=== PATIENT | female | born 1980 | race American Indian/Alaskan Native ===

== ENCOUNTER 2024-07-12 19:10 | Emergency (ER) | payer OTHER ==
[~2024-07-12] VITALS: Ht 172.7 cm; Wt 94.3 kg
[~2024-07-12 19:10] MED LIST: CEPHALEXIN500 MG PO; CIPRO500 MG PO; ENBREL25 MG; HYDROCODON-ACE1 EA11 PO; IBUPROFEN600 MG PO; IBUPROFEN800 MG PO; IRON240 MG PO; K-TAB10 MEQ PO; METHOTREXATE2.5 MG PO; MIRALAX17 GM PO; NITROFURANTOIN100 MG PO; OXYCODONE HCL5 MG PO; PERCOCET 5-3251 EACH PO; PLAQUENIL200 MG; PREDNISONE20 MG PO; PREDNISONE5 MG PO; PYRIDIUM200 MG PO; SULFASALAZINE500 MG PO; TREXALL5 MG SUB-Q; XARELTO10 MG PO; ZOFRAN ODT8 MG PO
[2024-07-12] MEDS ORDERED: HYDROCODON-ACE1 EAC8 PO (19:27)
[2024-07-12] MEDS ORDERED: IBUPROFEN 800 MG TAB PO ONE (20:15)
[2024-07-12 20:24] LABS: BASOPHILS 0.4 % (0.1-1.2); EOSINOPHILS 1.2 % (0.7-5.8); HEMATOCRIT 38.8 % (34.1-44.9); HEMOGLOBIN 11.8 g/dL (11.2-15.7); LYMPHOCYTES 14.3 % (19.3-51.7); MCH 23.8 PG (25.6-32.2); MCHC 30.4 g/dL (32.2-35.5); MCV 78.4 fL (79.4-94.8); MONOCYTES 5.6 % (4.7-12.5); NEUTROPHILS 77.4 % (34.0-71.1); PLATELET COUNT 423 K/uL (182-369); RBC 4.95 M/uL (3.93-5.22)
[2024-07-12 20:41] LABS: ALBUMIN 2.9 g/dL (3.4-5.0); ALBUMIN/GLOBULIN RATIO 0.81 (1.1-2.4); ANION GAP 8.5 (7-21); BILIRUBIN, TOTAL 0.2 mg/dL (0.2-1.0); BUN/CREATININE RATIO 17.07 (6.0-28.6); CALCIUM 8.7 mg/dL (8.5-10.1); CREATININE, SERUM 0.82 mg/dL (0.55-1.02); POTASSIUM 3.5 mmol/L (3.5-5.1); PROTEIN, TOTAL 6.5 g/dL (6.4-8.2)
[2024-07-12 23:16] VITALS: BP 108/52
== END 2024-07-12 23:15 | disposition home or self-care (01) ==
LOC: ED 19:10
PROVIDERS: Internal Medicine
DX: S86.911A Strain of unspecified muscle(s) and tendon(s) at lower leg level, right leg, initial encounter (principal); Z87.891 Personal history of nicotine dependence; Z88.5 Allergy status to narcotic agent; Z79.899 Other long term (current) drug therapy; X58.XXXA Exposure to other specified factors, initial encounter
CPT/HCPCS: 36415; 73560; 80053; 84550; 85025; 85379; 85651; 86140; 93971; 99284-25; A9270